=== PATIENT | male | born 1975 | race Caucasian/White ===

== ENCOUNTER → 2017-07-12 | Outpatient (CLI) | payer BC ==
[2017-07-12 12:02] LABS: HEMATOCRIT 50.6 % (42.0-52.0); HEMOGLOBIN 16.6 g/dL (13.5-18.0); MEAN CELL VOLUME 78 fl (78-100); MEAN CORPUSCULAR HEMOGLOBIN 26 pg (27-31); MEAN CORPUSCULAR HGB CONC 33 g/dL (33-37); MEAN PLATELET VOLUME 10.1 fl (7.4-10.4); PLATELET COUNT 226 K/mm3 (130-400); WHITE BLOOD COUNT 4.9 K/mm3 (4.8-10.8)
[2017-07-12 12:06] LABS: ALBUMIN 4.5 g/dL (3.5-5.0); BUN/CREATININE RATIO 16.8 (6.0-26.0); TOTAL BILIRUBIN 0.8 mg/dL (0.2-1.3); TOTAL PROTEIN 7.8 g/dL (6.3-8.2)
[2017-07-12 12:13] LABS: LYMPHOCYTE 39 % (20-51); MONOCYTE 12 % (3-10); NEUTROPHILS 48 % (42-75)
[2017-07-13 00:24] LABS: TESTOSTERONE 380 ng/dL (240-871)
== END ==
LOC: LAB 11:35
PROVIDERS: Nurse Practitioner Family
DX: E29.1 Testicular hypofunction (principal); F17.200 Nicotine dependence, unspecified, uncomplicated; F41.1 Generalized anxiety disorder

== ENCOUNTER → 2022-02-18 | Outpatient (CLI) | payer OTHER ==
[2022-02-18 17:35] LABS: HEMATOCRIT 56.8 % (42.0-52.0); HEMOGLOBIN 18.4 g/dL (13.5-18.0); MEAN PLATELET VOLUME 9.7 fl (7.4-10.4); RED BLOOD COUNT 7.24 M/mm3 (4.20-5.60); RED CELL DISTRIBUTION WIDTH 13.9 % (11.5-14.5); WHITE BLOOD COUNT 7.1 K/mm3 (4.8-10.8)
== END ==
LOC: LAB 02-17 13:07
DX: D45 Polycythemia vera (principal)

== ENCOUNTER → 2022-03-19 | Outpatient (CLI) | payer OTHER ==
[2022-03-19 11:52] LABS: HEMATOCRIT 49.2 % (42.0-52.0); HEMOGLOBIN 16.3 g/dL (13.5-18.0)
== END ==
LOC: LAB 11:29
DX: D45 Polycythemia vera (principal)